=== PATIENT | female | born 1990 | race Caucasian/White ===

== ENCOUNTER 2020-06-09 02:53 | Emergency (ER) | payer MEDICAID, SELFPAY ==
[2020-06-09 02:57] VITALS: BP 144/93; PULSE 99; RESP 17; TEMP 36.7; O2SAT 99; BMI 24.3
--- NOTE | 2020-06-09 03:10 | W.ED.EAR ---
HPI - Ear Problem General: Chief complaint: Ear Stated complaint: ear infection Time Seen by Provider: 06/09/20 02:54 Source: patient Mode of arrival: ambulatory Limitations: no limitations History of Present Illness: HPI Narrative: 22-year-old female states she been having left jaw and ear pain over the last 2 to 3 months. She states that she did told she has otitis media twice and will take the antibiotics and then pain again. Patient states that it seems to be worse when she wakes up the morning or middle the night. States she does grind her teeth at night. Is worse when she opens her mouth as well. States improved with rest. Denies any fevers. Denies any decreased hearing. Associated symptoms: Reports ear or mastoid pain; Denies fever(s), headache(s) or neck pain Review of Systems Const: Denies: fever(s), chills, body aches or change in appetite Eyes: Denies: blurry vision or eye discomfort ENMT: Reports: ear or mastoid pain Card: Denies: chest pain Resp: Denies: dyspnea GI: Denies: abdominal pain, nausea, vomiting or diarrhea : Denies: dysuria Musc: Denies: neck pain or back pain Skin/Breast: Denies: rash Neuro: Denies: headache(s) Psych: Denies: depression Jordan/Lymph: Denies: easy bruising All/Imm: Denies: urticaria PFSH ED PFSH: Social History (Updated 03/01/20 @ 12:13 by Joy Carrasco LPN) Smoking and tobacco status: former smoker Physical Exam Const: COMMON NORMALS: no acute distress, patient oriented x3 and healthy appearing HENMT: COMMON NORMALS: normocephalic, atraumatic, EAC's normal and TM's normal bilaterally HEAD & SCALP: normocephalic and atraumatic EXTERNAL AUDITORY CANAL: EAC's normal TYMPANIC MEMBRANE: TM's normal bilaterally OTHER: Tenderness along TMJ on the left Eye: COMMON NORMALS: Equal, round and reactive pupils present and EOMs intact bilaterally PUPIL: Yes Equal, round and reactive pupils present Neck/C-Spine: COMMON NORMALS: full ROM and supple Chest: COMMONS NORMALS: normal inspection of the chest and normal palpation of entire chest wall Resp: COMMON NORMALS: normal respiratory effort, No retractions, No use of accessory muscles and clear to auscultation bilaterally AUSCULTATION: clear to auscultation bilaterally Cardio: COMMON NORMALS: regular rate, regular rhythm and No murmurs present (Cardio) RATE: regular rate RHYTHM: regular rhythm GI: COMMON NORMALS: Normal to inspection, nondistended, normoactive bowel sounds present, Soft to palpation, non-tender and no masses PALPATION: Yes Soft to palpation Extremity: COMMON NORMALS: normal to inspection and full ROM Neuro: COMMON NORMALS: patient oriented x3, moves all extremities and no focal motor deficits Psych: COMMON NORMALS: mental status grossly normal, Normal thought process present and cooperative THOUGHT PROCESS: Normal thought process present Skin: COMMON NORMALS: no rashes or lesions noted and no wounds GENERAL SKIN EXAM: no rashes or lesions noted Course Vital Signs: Vital signs: Vital Signs Temperature 98.1 F 06/09/20 02:57 Pulse Rate 99 06/09/20 02:57 Respiratory Rate 17 06/09/20 02:57 Blood Pressure 144/93 06/09/20 02:57 Pulse Oximetry 99 06/09/20 02:57 MDM - Ear MDM Narrative: Medical decision making narrative: Patient presents with likely TMJ syndrome on the left. Her states she does grind her teeth really bad at night and her symptoms are consistent with TMJ. Her ear exam here is benign and she has no signs of mastoiditis or otitis media or externa. She states she has an appointment with a dentist on Monday. I informed her she likely needs a mouthguard while she sleeps. Will prescribe her Naprosyn. She is stable for discharge and return if worsening. Discharge Plan Discharge Patient Disposition: Home Clinical Impression: TMJ arthralgia Qualifiers: Laterality: left Qualified Code(s): M26.622 - Arthralgia of left temporomandibular joint Condition: Stable Prescriptions: New Naprosyn 500 mg tablet 500 mg PO BID PRN (Reason: pain) Qty: 20 RF: 0 No Action fluticasone propionate [Flonase Allergy Relief] 50 mcg/actuation spray,suspension 1 spray intranasal DAILY Qty: 9.9 RF: 0 Discharge Orders: Discharge ED (Routine); Ordered 06/09/20 Ordered By: Merna Alves Discharge Diet: Advance as tolerated Discharge Activity: Resume usual activity Patient Instructions: TMJ (Temporomandibular Joint Syndrome) Coding Level of Care Code ED [employer] for Ayana Garrison
[2020-06-09] MEDS: naproxen 500 mg Tablet PO (03:20)
== END 2020-06-09 03:22 | disposition home or self-care (01) ==
LOC: ER 03:12
PROVIDERS: Emergency Provider Emergency Medicine
DX: M26.622 Arthralgia of left temporomandibular joint (principal); Z87.891 Personal history of nicotine dependence
CPT/HCPCS: 12345; 99281; 99282